=== PATIENT | male | born 2005 | race Caucasian/White ===

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

== ENCOUNTER 2023-08-19 10:14 | Emergency (ER) | payer BC, OTHER ==
[~2023-08-19] VITALS: Ht 172.7 cm; Wt 59.1 kg
[2023-08-19 11:37] VITALS: BP 124/68; PULSE 69; RESP 16; TEMP 98.3; O2SAT 98
== END 2023-08-19 11:38 | disposition home or self-care (01) ==
LOC: ER 10:14
DX: R05.9 Cough, unspecified (principal); R51.9 Headache, unspecified; R06.02 Shortness of breath; L75.0 Bromhidrosis; R68.83 Chills (without fever)
CPT/HCPCS: 71045; 99283

== ENCOUNTER 2023-10-21 17:27 | Emergency (ER) | payer BC, OTHER ==
[~2023-10-21] VITALS: Ht 172.7 cm; Wt 63.6 kg
[2023-10-21 17:29] VITALS: BP 143/79; PULSE 81; TEMP 98.6; O2SAT 98
[2023-10-21] MEDS ORDERED: PRED10TA23 PO (19:15)
[2023-10-21] MEDS ORDERED: ALBU8HFA INH (19:15)
[2023-10-21] MEDS: dexamethasone sod phosphate 10mg/ml inj IM STA (20:04)
[2023-10-21 20:05] VITALS: RESP 16
[2023-10-21] MEDS: ketorolac trometh 30MG/ML vial 30 MG/ML VIAL IM ONE (20:05)
== END 2023-10-21 20:02 | disposition home or self-care (01) ==
LOC: ER 17:28
DX: R09.1 Pleurisy (principal)
CPT/HCPCS: 71045; 96372; 99284; J1100; J1885